=== PATIENT | female | born 1980 | race Caucasian/White ===

== ENCOUNTER 2017-06-28 12:42 | Emergency (ER) | payer MEDICAID ==
[~2017-06-28] VITALS: Ht 177.8 cm; Wt 63.5 kg
[~2017-06-28 12:42] MED LIST: ACETAMINOPHEN; ALPR0.5T7; CARI-316; CARI250T; DEPO SHOT; DOCU-137; FERR324T11; FLUO-125; HYDR-1421 PO; IRON PILLS; LAMO100T44; LIDO5DIS21; MORP1TAB12; OMEP20TA85; ONDA8TAB9 PO; OXYCODONE; OXYCODONE-ACETAMINOPHEN; PROZAC PO; RANI-185 PO; RANI-226; TRAZ300T13; ZOLP10TA PO; ZOLP5TAB5; [UNRECOGNIZED DRUG - CODE]; [UNRECOGNIZED DRUG - OTHER]
[2017-06-28 12:49] VITALS: BP 171/115
== END 2017-06-28 12:53 | disposition left against medical advice (07) ==
LOC: EDBD 12:42 → ER 12:42
DX: F41.9 Anxiety disorder, unspecified (principal); Z53.21 Procedure and treatment not carried out due to patient leaving prior to being seen by health care provider

== ENCOUNTER 2018-06-24 12:31 | Emergency (ER) | payer MEDICAID ==
[~2018-06-24] VITALS: Ht 177.8 cm; Wt 70.3 kg
[~2018-06-24 12:31] MED LIST changes: -CARI-316; +CARI350T22; -DOCU-137; +DOCU1CAP54; +ONDA-133 PO; -ONDA8TAB9 PO
[2018-06-24 12:55] VITALS: BP 130/94
== END 2018-06-24 15:01 | disposition left against medical advice (07) ==
LOC: EDBD 12:31 → EDUNIT# 12:31 → ER 12:31
DX: R10.9 Unspecified abdominal pain (principal); Z53.21 Procedure and treatment not carried out due to patient leaving prior to being seen by health care provider

== ENCOUNTER 2018-09-19 15:51 | Emergency (ER) | payer MEDICAID ==
[~2018-09-19] VITALS: Ht 177.8 cm; Wt 70.3 kg
[2018-09-19 16:01] VITALS: BP 122/84
[2018-09-19] MEDS: cefTRIAXone SOD 1,000 MG VL IM ONE (17:32)
[2018-09-19] MEDS: IBUPROFEN 800 MG TAB PO ONE (17:32)
== END 2018-09-19 18:04 | disposition home or self-care (01) ==
LOC: ER 15:57
DX: R23.8 Other skin changes (principal); L08.9 Local infection of the skin and subcutaneous tissue, unspecified; I10 Essential (primary) hypertension; F17.210 Nicotine dependence, cigarettes, uncomplicated; F15.90 Other stimulant use, unspecified, uncomplicated; Z79.899 Other long term (current) drug therapy; Z90.49 Acquired absence of other specified parts of digestive tract; Z90.710 Acquired absence of both cervix and uterus
CPT/HCPCS: 96372; 99283; J0696

== ENCOUNTER 2019-01-21 12:38 | Emergency (ER) | payer MEDICAID ==
[~2019-01-21] VITALS: Ht 177.8 cm; Wt 68.0 kg
[2019-01-21] MEDS ORDERED: SODIUM CHLORIDE 0.9% 500 ML IVB ONE (13:27)
[2019-01-21] MEDS ORDERED: MORPHINE SULFATE 4 MG/ML SYR/VIAL IV ONE (13:30)
[2019-01-21] MEDS ORDERED: ONDANSETRON HCL 4 MG/2 ML VIAL IV ONE (13:30)
[2019-01-21] MEDS ORDERED: IOHEXOL 300 MG/ML 100ML BOTTLE IJ ONE (13:48)
[2019-01-21 13:55] LABS: Basophils # (auto) 0 uL; Basophils % (auto) 0.6 % (0.0-2.0); Eosinophils # (auto) 0.1 uL; Eosinophils % (auto) 1.4 % (0.0-7.0); Hematocrit 41.9 % (36.0-46.0); Hemoglobin 13.9 g/dL (12.2-16.2); Lymphocytes # (auto) 2.3 uL; Lymphocytes % (auto) 33.8 % (10.0-50.0); Mean Corpuscular Hemoglobin 30.1 pg (28.0-32.0); Mean Corpuscular Hgb Conc. 33.2 g/dL (32.0-36.0); Mean Corpuscular Volume 90.8 fL (80.0-100.0); Monocytes # (auto) 0.5 uL; Monocytes % (auto) 6.7 % (0.0-12.0); Neutrophils % (auto) 57.5 % (37.0-80.0); Nucleated Red Blood Cells % 0.1 %; Platelet Count (auto) 252 10^3/uL (140-450); Red Blood Cells 4.61 10^6/uL (4.0-5.20); White Blood Cell 6.9 10^3/uL (4.4-10.8)
[2019-01-21 14:12] LABS: INR 1.09 (0.9-1.15); Prothrombin Time 11.6 sec (9.27-12.13)
[2019-01-21 14:27] LABS: Chloride 106 mmol/L (98-107); Potassium 4.1 mmol/L (3.5-5.1); Sodium 138 mmol/L (136-145)
[2019-01-21 14:32] LABS: Alanine Aminotransferase 23 U/L (13-56); Albumin 4.1 g/dL (3.4-5.0); Alkaline Phosphatase 67 U/L (45-117); Anion Gap 8 (5-15); Aspartate Aminotransferase 15 U/L (15-37); Bilirubin, Total 1.1 mg/dL (0.2-1.0); Blood Urea Nitrogen 9 mg/dL (7-18); Calcium 8.7 mg/dL (8.5-10.1); Carbon Dioxide 24 mmol/L (21-32); GFR African American 112 mL/min; GFR Non-African American 93 mL/min; Glucose 94 mg/dL (74-106); Lipase 90 U/L (73-393); Total Protein 7.4 g/dL (6.4-8.2)
[2019-01-21 17:25] LABS: Urine Bacteria NONE SEEN /hpf (None Seen); Urine Blood Negative /uL (Negative); Urine Mucus FEW (None Seen); Urine WBC 1 /hpf (0 - 5)
[2019-01-21 17:31] LABS: Urine Specific Gravity > 1.050 (1.001-1.035)
[2019-01-21 17:50] LABS: Amphetamine Screen, Urine POSITIVE (NEGATIVE); Barbiturate Scree,Urine NEGATIVE (NEGATIVE); Benzodiazephine Screen, Urine NEGATIVE (NEGATIVE); Cannabinoid Screen, Urine NEGATIVE (NEGATIVE); Cocaine Screen, Urine NEGATIVE (NEGATIVE)
[2019-01-21 17:57] LABS: Alcohol, Urine < 3.0 mg/dL (0-5); Opiate Scree,Urine NEGATIVE (NEGATIVE); Phencyclidine Screen, Urine NEGATIVE (NEGATIVE)
[2019-01-21 18:55] VITALS: BP 159/110
== END 2019-01-21 20:07 | disposition home or self-care (01) ==
LOC: ER 12:38
DX: N93.8 Other specified abnormal uterine and vaginal bleeding (principal); I10 Essential (primary) hypertension; F15.10 Other stimulant abuse, uncomplicated; F17.210 Nicotine dependence, cigarettes, uncomplicated; M25.511 Pain in right shoulder; Z90.710 Acquired absence of both cervix and uterus; Z90.49 Acquired absence of other specified parts of digestive tract
CPT/HCPCS: 36415; 73030; 74177; 76830; 76856; 80053; 80307; 81001; 83690; 84484; 84702; 85025; 85610; 85730; 94761; 96374; 96375; 99284; J2270; J2405; J7040; Q9967

== ENCOUNTER 2019-03-14 11:35 | Emergency (ER) | payer MEDICAID ==
[~2019-03-14] VITALS: Ht 177.8 cm; Wt 65.8 kg
[2019-03-14 12:02] VITALS: BP 140/94
[2019-03-14] MEDS ORDERED: cefTRIAXone SOD 1,000 MG VL IM ONE (12:45)
[2019-03-14] MEDS ORDERED: LIDOCAINE 1% HCL (LOCAL ANESTH.) INJ 20ML MDV IJ ONE (12:45)
[2019-03-14] MEDS ORDERED: IBUPROFEN 800 MG TAB PO ONE (13:00)
== END 2019-03-14 13:51 | disposition home or self-care (01) ==
LOC: ER 11:35
DX: L03.112 Cellulitis of left axilla (principal); I10 Essential (primary) hypertension; F17.210 Nicotine dependence, cigarettes, uncomplicated; F15.90 Other stimulant use, unspecified, uncomplicated; Z79.899 Other long term (current) drug therapy; Z90.49 Acquired absence of other specified parts of digestive tract; Z90.710 Acquired absence of both cervix and uterus
CPT/HCPCS: 99283; J0696

== ENCOUNTER 2019-12-16 20:49 | Emergency (ER) | payer MEDICAID, OTHER ==
[~2019-12-16] VITALS: Ht 177.8 cm; Wt 69.9 kg
[~2019-12-16 20:49] MED LIST changes: +DOCU1CAP46; -DOCU1CAP54
[2019-12-16 22:44] VITALS: BP 96/64
== END 2019-12-16 23:47 | disposition home or self-care (01) ==
LOC: ER 20:51
DX: S81.002A Unspecified open wound, left knee, initial encounter (principal); L03.116 Cellulitis of left lower limb; I10 Essential (primary) hypertension; F17.210 Nicotine dependence, cigarettes, uncomplicated; F15.10 Other stimulant abuse, uncomplicated; Z90.49 Acquired absence of other specified parts of digestive tract; Z90.710 Acquired absence of both cervix and uterus; Z79.899 Other long term (current) drug therapy; X58.XXXA Exposure to other specified factors, initial encounter; Y93.89 Activity, other specified; Y92.89 Other specified places as the place of occurrence of the external cause; Y99.8 Other external cause status
CPT/HCPCS: 73562

== ENCOUNTER 2020-05-10 01:24 | Emergency (ER) | payer OTHER ==
[~2020-05-10] VITALS: Ht 152.4 cm; Wt 2.3 kg
[2020-05-10 01:58] VITALS: BP 138/92
[2020-05-10 06:25] LABS: Urine Bacteria NONE SEEN /hpf (None Seen); Urine Blood Negative /uL (Negative); Urine Hyaline Cast MOD /lpf (0 - 2); Urine Mucus FEW (None Seen); Urine Specific Gravity 1.029 (1.001-1.035); Urine WBC 24 /hpf (0 - 5)
[2020-05-10 06:42] LABS: Alcohol, Urine < 3.0 mg/dL (0-10); Amphetamine Screen, Urine POSITIVE (NEGATIVE); Barbiturate Scree,Urine NEGATIVE (NEGATIVE); Benzodiazephine Screen, Urine NEGATIVE (NEGATIVE); Cannabinoid Screen, Urine NEGATIVE (NEGATIVE); Cocaine Screen, Urine NEGATIVE (NEGATIVE); Opiate Scree,Urine NEGATIVE (NEGATIVE); Phencyclidine Screen, Urine NEGATIVE (NEGATIVE)
== END 2020-05-10 05:14 | disposition left against medical advice (07) ==
LOC: ER 01:24
DX: F15.10 Other stimulant abuse, uncomplicated (principal); I10 Essential (primary) hypertension; F17.210 Nicotine dependence, cigarettes, uncomplicated; Z90.49 Acquired absence of other specified parts of digestive tract; Z90.710 Acquired absence of both cervix and uterus
CPT/HCPCS: 70450; 80307; 81001

== ENCOUNTER 2020-05-15 19:14 | Emergency (ER) | payer OTHER ==
[~2020-05-15] VITALS: Ht 175.3 cm; Wt 65.8 kg
[2020-05-15 19:33] VITALS: BP 128/85
== END 2020-05-15 21:06 | disposition left against medical advice (07) ==
LOC: ER 19:15
DX: L02.01 Cutaneous abscess of face (principal); Z53.21 Procedure and treatment not carried out due to patient leaving prior to being seen by health care provider

== ENCOUNTER 2020-12-01 02:57 | Emergency (ER) | payer OTHER ==
[~2020-12-01] VITALS: Ht 172.7 cm; Wt 70.3 kg
[2020-12-01 03:33] LABS: Basophils # (auto) 0.1 10 ^3/uL (0-0.2); Eosinophils # (auto) 0.3 10 ^3/uL (0-0.8); Eosinophils % (auto) 4.1 % (0.0-7.0); Hematocrit 37.4 % (36.0-46.0); Hemoglobin 12.4 g/dL (12.2-16.2); Lymphocytes # (auto) 2.4 10 ^3/uL (0.4-5.4); Lymphocytes % (auto) 33.2 % (10.0-50.0); Mean Corpuscular Hemoglobin 28.2 pg (28.0-32.0); Mean Corpuscular Hgb Conc. 33.1 g/dL (32.0-36.0); Mean Corpuscular Volume 85.2 fL (80.0-100.0); Monocytes # (auto) 0.6 10 ^3/uL (0-1.3); Monocytes % (auto) 8.6 % (0.0-12.0); Neutrophils # (auto) 3.9 10 ^3/uL (1.6-8.6); Neutrophils % (auto) 53.1 % (37.0-80.0); Nucleated Red Blood Cells % 0.1 %; Platelet Count (auto) 215 10^3/uL (140-450); Red Blood Cells 4.39 10^6/uL (4.0-5.20); Red Cell Distribution Width 13.5 % (11.8-14.3); White Blood Cell 7.4 10^3/uL (4.4-10.8)
[2020-12-01 03:50] LABS: Albumin 3.4 g/dL (3.4-5.0); Anion Gap 4 (5-15); Blood Alcohol < 3.0 mg/dL (0-5); Blood Urea Nitrogen 20 mg/dL (7-18); Calcium 8.8 mg/dL (8.5-10.1); Carbon Dioxide 26 mmol/L (21-32); Chloride 109 mmol/L (98-107); Glucose 108 mg/dL (74-106); Potassium 3.9 mmol/L (3.5-5.1); Sodium 139 mmol/L (136-145)
[2020-12-01 03:53] LABS: Alanine Aminotransferase 36 U/L (13-56); Alkaline Phosphatase 106 U/L (45-117); Aspartate Aminotransferase 22 U/L (15-37); BUN/Creatinine Ratio 37.7; Bilirubin, Total 0.8 mg/dL (0.2-1.0); GFR African American 166 mL/min; GFR Non-African American 137 mL/min
[2020-12-01 04:36] VITALS: BP 156/95
== END 2020-12-01 04:23 | disposition home or self-care (01) ==
LOC: EDBD 02:57 → EDUNIT# 02:57 → ER 03:01
DX: S16.1XXA Strain of muscle, fascia and tendon at neck level, initial encounter (principal); S27.322A Contusion of lung, bilateral, initial encounter; S20.219A Contusion of unspecified front wall of thorax, initial encounter; G89.4 Chronic pain syndrome; F17.210 Nicotine dependence, cigarettes, uncomplicated; F41.9 Anxiety disorder, unspecified; I10 Essential (primary) hypertension; Z79.899 Other long term (current) drug therapy; V47.5XXA Car driver injured in collision with fixed or stationary object in traffic accident, initial encounter; Y93.I9 Activity, other involving external motion; Y92.89 Other specified places as the place of occurrence of the external cause; Y99.8 Other external cause status
CPT/HCPCS: 36415; 70450; 71250; 72125; 74176; 80053; 80320; 84702; 85025

== ENCOUNTER 2021-05-04 10:17 | Emergency (ER) | payer OTHER ==
[~2021-05-04] VITALS: Ht 175.3 cm; Wt 61.2 kg
[2021-05-04 10:21] VITALS: BP 122/81
[2021-05-04] MEDS ORDERED: methylPREDNISolone SOD SUCC 125 MG/2 ML VL IM ONE (11:00)
== END 2021-05-04 11:49 | disposition home or self-care (01) ==
LOC: ER 10:17
DX: S46.912A Strain of unspecified muscle, fascia and tendon at shoulder and upper arm level, left arm, initial encounter (principal); L25.9 Unspecified contact dermatitis, unspecified cause; I10 Essential (primary) hypertension; F17.210 Nicotine dependence, cigarettes, uncomplicated; Z90.49 Acquired absence of other specified parts of digestive tract; Z90.710 Acquired absence of both cervix and uterus; Z79.899 Other long term (current) drug therapy; V89.2XXA Person injured in unspecified motor-vehicle accident, traffic, initial encounter; Y93.89 Activity, other specified; Y92.89 Other specified places as the place of occurrence of the external cause; Y99.8 Other external cause status
CPT/HCPCS: 73030; 96372; 99283; J2930

== ENCOUNTER 2022-01-27 16:07 | Emergency (ER) | payer OTHER ==
[~2022-01-27] VITALS: Ht 175.3 cm; Wt 72.6 kg
[2022-01-27 16:44] LABS: Urine Bacteria FEW /hpf (None Seen); Urine Blood Negative /uL (Negative); Urine Mucus FEW (None Seen); Urine Specific Gravity 1.031 (1.001-1.035); Urine WBC 2 /hpf (0 - 5)
[2022-01-27] MEDS ORDERED: NITR-87 PO (16:49)
[2022-01-27 17:29] VITALS: BP 137/84
== END 2022-01-27 17:31 | disposition home or self-care (01) ==
LOC: ER 16:07
DX: N39.0 Urinary tract infection, site not specified (principal); F17.210 Nicotine dependence, cigarettes, uncomplicated; F15.10 Other stimulant abuse, uncomplicated; I10 Essential (primary) hypertension; Z90.49 Acquired absence of other specified parts of digestive tract; Z90.710 Acquired absence of both cervix and uterus
CPT/HCPCS: 81001

== ENCOUNTER 2022-03-08 14:30 | Emergency (ER) | payer OTHER ==
[~2022-03-08] VITALS: Ht 177.8 cm; Wt 68.0 kg
[~2022-03-08 14:30] MED LIST changes: +NITR-87 PO
[2022-03-08 15:22] LABS: Urine Bacteria FEW /hpf (None Seen); Urine Blood Negative /uL (Negative); Urine Specific Gravity 1.027 (1.001-1.035); Urine WBC 2 /hpf (0 - 5)
[2022-03-08] MEDS ORDERED: ONDA-144 PO ×2 (15:43→15:56)
[2022-03-08 16:13] VITALS: BP 129/86
[2022-03-08] MEDS ORDERED: ONDANSETRON ODT 4 MG TAB PO ONE (16:15)
== END 2022-03-08 16:23 | disposition home or self-care (01) ==
LOC: ER 14:30
DX: A08.4 Viral intestinal infection, unspecified (principal); I10 Essential (primary) hypertension; F17.210 Nicotine dependence, cigarettes, uncomplicated; Z90.49 Acquired absence of other specified parts of digestive tract; Z90.710 Acquired absence of both cervix and uterus; Z79.899 Other long term (current) drug therapy
CPT/HCPCS: 81001; 99283; Q0162

== ENCOUNTER 2022-07-12 18:33 | Emergency (ER) | payer OTHER ==
[~2022-07-12] VITALS: Ht 177.8 cm; Wt 63.0 kg
[~2022-07-12 18:33] MED LIST changes: +ONDA-144 PO
[2022-07-12 18:46] VITALS: BP 156/96
[2022-07-12 19:43] LABS: Urine Bacteria NONE SEEN /hpf (None Seen); Urine Blood Negative /uL (Negative); Urine Mucus FEW (None Seen); Urine WBC 3 /hpf (0 - 5)
[2022-07-12 19:45] LABS: Basophils # (auto) 0.1 10 ^3/uL (0-0.2); Eosinophils # (auto) 0.1 10 ^3/uL (0-0.8); Lymphocytes # (auto) 2.6 10 ^3/uL (0.4-5.4); Monocytes # (auto) 0.6 10 ^3/uL (0-1.3)
[2022-07-12 19:46] LABS: Basophils % (auto) 0.6 % (0.0-2.0); Eosinophils % (auto) 1.1 % (0.0-7.0); Hematocrit 37.5 % (36.0-46.0); Hemoglobin 12.5 g/dL (12.2-16.2); Lymphocytes % (auto) 25.6 % (10.0-50.0); Mean Corpuscular Hemoglobin 26.5 pg (28.0-32.0); Mean Corpuscular Hgb Conc. 33.2 g/dL (32.0-36.0); Mean Corpuscular Volume 79.8 fL (80.0-100.0); Monocytes % (auto) 5.5 % (0.0-12.0); Neutrophils # (auto) 6.8 10 ^3/uL (1.6-8.6); Neutrophils % (auto) 67.2 % (37.0-80.0); Nucleated Red Blood Cells % 0.1 %; Red Blood Cells 4.71 10^6/uL (4.0-5.20); Red Cell Distribution Width 13.7 % (11.8-14.3); White Blood Cell 10.2 10^3/uL (4.4-10.8)
[2022-07-12 19:53] LABS: Albumin 3.6 g/dL (3.4-5.0); Calcium 8.7 mg/dL (8.5-10.1); Potassium 4.5 mmol/L (3.5-5.1)
[2022-07-12 19:58] LABS: BUN/Creatinine Ratio 28.4; Bilirubin, Total 1.2 mg/dL (0.2-1.0); Total Protein 7.6 g/dL (6.4-8.2)
== END 2022-07-13 09:48 | disposition home or self-care (01) ==
LOC: ER 18:34
DX: R10.30 Lower abdominal pain, unspecified (principal); F17.210 Nicotine dependence, cigarettes, uncomplicated; F15.10 Other stimulant abuse, uncomplicated; I10 Essential (primary) hypertension; Z90.49 Acquired absence of other specified parts of digestive tract; Z90.710 Acquired absence of both cervix and uterus
CPT/HCPCS: 36415; 74176; 80053; 81001; 83690; 85025

== ENCOUNTER 2022-07-20 17:02 | Emergency (ER) | payer OTHER | END 2022-07-20 18:59 | disposition left against medical advice (07) | LOC: ER 17:02 | DX: K62.89 Other specified diseases of anus and rectum (principal); Z53.21 Procedure and treatment not carried out due to patient leaving prior to being seen by health care provider ==

== ENCOUNTER 2022-08-29 17:59 | Emergency (ER) | payer OTHER ==
[~2022-08-29] VITALS: Ht 177.8 cm; Wt 68.1 kg
[2022-08-29 22:32] VITALS: BP 141/99
== END 2022-08-30 00:05 | disposition home or self-care (01) ==
LOC: ER 17:59
DX: S63.502A Unspecified sprain of left wrist, initial encounter (principal); S20.212A Contusion of left front wall of thorax, initial encounter; I10 Essential (primary) hypertension; Z90.49 Acquired absence of other specified parts of digestive tract; Z90.710 Acquired absence of both cervix and uterus; W22.8XXA Striking against or struck by other objects, initial encounter; Y93.89 Activity, other specified; Y92.89 Other specified places as the place of occurrence of the external cause; Y99.8 Other external cause status
CPT/HCPCS: 71101; 73110